=== PATIENT | male | born 1955 | race African-American/Black ===

== ENCOUNTER → 2021-05-20 | Outpatient (CLI) | payer OTHER | LOC: SJCVCIMAG 09:48 | PROVIDERS: ATTEND Internal Medicine Cardiovascular Disease | DX: I08.0 Rheumatic disorders of both mitral and aortic valves (principal); I25.10 Atherosclerotic heart disease of native coronary artery without angina pectoris; R06.00 Dyspnea, unspecified; I10 Essential (primary) hypertension; E78.00 Pure hypercholesterolemia, unspecified; E78.5 Hyperlipidemia, unspecified; Z79.82 Long term (current) use of aspirin; Z79.899 Other long term (current) drug therapy; Z72.89 Other problems related to lifestyle; Z88.8 Allergy status to other drugs, medicaments and biological substances; R07.9 Chest pain, unspecified; R42 Dizziness and giddiness; R53.83 Other fatigue ==